=== PATIENT | female | born 1955 | race Hispanic/Latino ===

== ENCOUNTER 2024-06-05 09:12 | Day surgery (SDC) | payer OTHER ==
[~2024-06-05] VITALS: Ht 157.5 cm; Wt 75.3 kg
[2024-06-05] VITALS (13 sets, daily range): BP systolic 150–168; BP diastolic 73–84; PULSE 78–92; RESP 14–19; TEMP 97.4–97.6
[2024-06-05] MEDS ORDERED: IOHEXOL-350 50ML VIAL IV ONE (09:49)
[2024-06-05] MEDS ORDERED: ANAS1TAB49 PO (11:16)
[2024-06-05] MEDS ORDERED: TELM80TA10 PO (11:16)
[2024-06-05] MEDS ORDERED: ATOR10TA69 PO (11:16)
[2024-06-05] MEDS ORDERED: EMPA10TA PO (11:16)
[2024-06-05] MEDS ORDERED: FAMO40TA7 PO (11:16)
[2024-06-05] MEDS ORDERED: SERT-439 PO (11:16)
[2024-06-05] MEDS ORDERED: FAMO20TA8 PO (11:16)
[2024-06-05] MEDS: 0.9%NACL 1000ML 1,000 ML IV ONE (12:00)
[2024-06-05] MEDS ORDERED: proPOFol 10 MG/ML 20ML VIAL IV ONE (14:06)
[2024-06-05] MEDS ORDERED: SUCCINYLCHOLINE CHLORIDE 20 MG/ML 10 ML VIAL ONE (14:06)
[2024-06-05] MEDS ORDERED: FENTanyl CITRate PF 50 MCG/1 ML 2ML VIAL ONE (14:06)
[2024-06-05] MEDS ORDERED: dexaMETHasone SOD PHOSPHATE 10MG/ML 1ML VIAL ONE (14:07)
[2024-06-05] MEDS ORDERED: ondanSETRON 4MG INJ ONE (14:07)
[2024-06-05] MEDS: INDOMETHACIN 100 MG SUPP.RECT RC ONE (14:20)
[2024-06-05] MEDS ORDERED: ePHEDrine SULFate 50 MG/ML AMPULE ONE (14:34)
--- NOTE | 2024-06-05 15:21 | HMCIMG ---
ERCP BILI/PANC DUCT REASON: CALCULUS OF BILE DUCT WITH CHOLANGITIS. COMPARISON: None TECHNIQUE: ERCP was performed by referring physician. FINDINGS: Please see procedure report by referring physician. IMPRESSION: ERCP.
--- NOTE | 2024-06-05 16:06 | NUR ---
Full and complete discharge instructions given to Patient and Family both verbally and in writing. Explained GI ERCP procedure precautions and follow up. Repeated NPO Status until 8 pm and Clear Liquids tonight thereafter. Patient and Provided both voiced understanding. All questions answered. PIV removed with catheter tip intact. Home with Family W/C to POV.
== END 2024-06-05 16:13 | disposition home or self-care (01) ==
LOC: ENDO 09:12 → DAH 09:12 → ENDO 16:13
PROVIDERS: ATTEND Internal Medicine Gastroenterology
DX: K80.30 Calculus of bile duct with cholangitis, unspecified, without obstruction (principal); I10 Essential (primary) hypertension; E11.9 Type 2 diabetes mellitus without complications; F41.9 Anxiety disorder, unspecified; E78.00 Pure hypercholesterolemia, unspecified; M81.0 Age-related osteoporosis without current pathological fracture; M19.90 Unspecified osteoarthritis, unspecified site; Z90.49 Acquired absence of other specified parts of digestive tract; Z85.3 Personal history of malignant neoplasm of breast
CPT/HCPCS: 43264; 82948 ×2; 43275; 43273; 74328; J3010; J1100; J0330; J7030; J3490; J2704; J2405; Q9967; A4215; A4223; A4657; A7002; A4222; C1769; C1773; 74330